=== PATIENT | female | born 1975 | race Caucasian/White ===

== ENCOUNTER → 2021-09-05 | Outpatient (CLI) | payer BC ==
--- NOTE | 2021-09-05 14:17 | RAD ---
Exam Date: 09/05/2021 8:20 AM MRI RIGHT LOWER EXTREMITY W/O Indication: Reason: GANGLION CYST GREAT TOE OF RIGHT FOOT / Spl. Instructions: / History: . TECHNIQUE: Multiplanar MR imaging of the right forefoot was performed without intravenous contrast. FINDINGS: Mild marrow edema is seen involving the fourth metacarpal head and neck, nonspecific. Mild abnormal T1 signal is also noted at the site, but without definite fracture line identified. Findings are non specific and may represent degenerative change, posttraumatic bone contusion, or stress change. Infe ction is not excluded. There is a small joint effusion at the fourth MTP joint with mild surrounding soft tissue edema. Other visualized osseous structures are intact. There is a 12 x 7 x 7 mm multiloculated subcutaneous cystic lesion medial to the distal aspect of the first proximal phalanx, nonspecific. Mild marrow edema involving the adjacent first proximal phalan x is nonspecific but may be degenerative. No osseous destructive changes are identified. IMPRESSION: Multiloculated subcutaneous cystic lesion medial to the first proximal phalanx is nonspecific. This could represent a sebaceous cyst or ganglion cyst. Mild marrow edema involving the adjacent bone is nonspecific but may represent degenerative change. No destructive osseous changes are identified to suggest acute ostomy myelitis. Marrow edema involving the fourth metacarpal head and neck is nonspecific. Small joint effusion at t he fourth MTP joint is also noted. Findings may represent degenerative change, posttraumatic bone co ntusion, or stress change. Infection is not excluded. No osseous destructive changes are seen to davies ggest acute osteomyelitis Correlate clinically. Electronically signed by: Luisito Pardo MD (09/05/2021 2:15 PM) [id number]
== END ==
LOC: MRI 08:08
DX: M67.471 Ganglion, right ankle and foot (principal); R60.0 Localized edema; M25.474 Effusion, right foot
CPT/HCPCS: 73718